=== PATIENT | male | born 1945 | race Caucasian/White ===

== ENCOUNTER → 2025-10-14 10:30 | Outpatient (REF) | payer MEDICARE, BC, SELFPAY ==
[2025-10-14 10:48] LABS: Mucous, Urine 0 SEEN /hpf (<or=2+); Red Blood Cells-Urine 0 SEEN /hpf (0-5); Squamous Epithelial Cells - UA 0 SEEN /hpf (0-5)
[2025-10-14 10:50] LABS: Color, Urine Yellow (Yellow); Glucose, Dipstick Normal (Normal); Ketone-Dipstick Negative (Negative); Leukocyte Esterase-Dipstick Negative /ul (Negative); Nitrite-Dipstick Negative (Negative); Occult Blood-Urine Negative /ul (Negative); Protein-Dipstick 15 mg/dl (Negative); Specific Gravity, Urine 1.010 (1.002-1.030); Urine Bilirubin Dipstick Negative (Negative)
== END ==
DX: Z00.00 Encounter for general adult medical examination without abnormal findings (principal)
CPT/HCPCS: 81001

== ENCOUNTER 2025-10-15 10:41 | Emergency (ER) | payer MEDICARE, SELFPAY ==
[2025-10-15] VITALS (8 sets, daily range): BP systolic 143–193; BP diastolic 64–91; PULSE 52–71; RESP 11–16; TEMP 35.8–37.1; O2SAT 94–100; BMI 24.9
--- NOTE | 2025-10-15 10:53 | EKG12_ITS ---
Test Reason : Blood Pressure : */* mmHG Vent. Rate : 55 BPM Atrial Rate : 55 BPM P-R Int : 196 ms QRS Dur : 92 ms QT Int : 484 ms P-R-T Axes : 35 61 71 degrees QTcB Int : 463 ms Sinus bradycardia Otherwise normal ECG Reconfirmed by Francis Deluna ([id number]), assignment editor ISMAEL PIERRE ([id number]) on 10/17/2025 10:10:50 AM Also confirmed by Francis Deluna ([id number]), assignment editor ISMAEL PIERRE ([id number]) on 10/18/2025 8:10:29 AM Referred By: Confirmed By: Francis Deluna
--- NOTE | 2025-10-15 10:54 | EX.ED.DYSGE1 ---
HPI History of Present Illness Chief Complaint: Hypoglycemia Narrative Narrative: Patient is a 80-year-old male presenting to the emergency department for poorly controlled glucose at his facility, [facility]. Patient has a past medical history of diabetes on insulin, cognitive impairment. The facility reports that his glucose has been poorly controlled. Not stating if it has been high or low. He is unable to provide history about why he is here or what has been going on. EMS reports that there glucose on time of arrival was 32, received 100 ml of D10 and was 142 on their recheck. PFSH PFSH Allergy/AdvReac Type Severity Reaction Status Date / Time No Known Allergies Allergy Verified 10/15/25 10:52 Social History Smoking Status: Unknown if ever smoked ROS ROS ED Review of Systems ROS Unobtainable: due to mental status EXAM Physical Exam Narrative Exam Narrative: Vital signs: Reviewed General: Alert and orientedx3. Intermittently confused, asking odd questions. No acute distress. Chronically ill appearing, nontoxic. HEENT: Head is normocephalic and atraumatic, sinuses nontender, pupils equal round and reactive. Nares are patent. Oropharynx and throat exams normal. Dry mucous membranes. Neck: Supple without lymphadenopathy nontender Cardiovascular: Regular rate and rhythm, no murmurs. No rubs or gallops. Normal S1 and S2 Respiratory: Clear to auscultation bilaterally. No wheezes, rales, rhonchi Abdominal: Soft and nontender. Normal bowel sounds. No guarding or rebound. Nonsurgical abdomen Extremities: No tenderness. No bruising. Normal range of motion. Normal sensation. Skin: No rash or redness. Neurological: Follows commands intermittently. Cranial nerves II through XII are grossly intact. Normal strength and sensation. Normal cerebellar function The rest of the physical exam is unremarkable Const Vital Signs: 10/15/25 10:44 10/15/25 10:51 10/15/25 11:43 Temperature 96.4 F L 98.1 F Temperature Source Temporal Oral Pulse Rate 57 L 57 L Respiratory Rate 15 14 Respiratory Effort Normal Non-Labored Respiratory Pattern Normal Blood Pressure 146/64 H 163/71 H Blood Pressure Mean 91 101 Pulse Ox 100 100 Oxygen Delivery Method Room Air Room Air 10/15/25 11:47 10/15/25 12:00 10/15/25 13:00 Temperature 98.7 F 98 F 98.4 F Temperature Source Oral Oral Oral Pulse Rate 52 L 58 L 62 Respiratory Rate 12 16 14 Respiratory Effort Respiratory Pattern Blood Pressure 193/76 H 193/76 H 143/68 H Blood Pressure Mean 115 115 93 Pulse Ox 100 94 95 Oxygen Delivery Method Room Air Room Air 10/15/25 14:00 10/15/25 14:35 10/15/25 15:15 Temperature 98.7 F 98 F Temperature Source Oral Pulse Rate 59 L 57 L 71 Respiratory Rate 11 L 13 14 Respiratory Effort Respiratory Pattern Blood Pressure 176/88 H 176/88 H 163/91 H Blood Pressure Mean 117 117 115 Pulse Ox 100 100 96 Oxygen Delivery Method Room Air Room Air MDM MDM MDM Narrative Medical decision making narrative: Patient is an 80-year-old male presenting to the emergency department for hypoglycemia. Patient was seen and examined. Vitals are stable. BP of 146/64. Pulse of 57 with respirations of 15. Patient is afebrile saturating 100% on room air. [id number] glucose on arrival here is 58, D10 bolus started. EKG shows sinus bradycardia at a rate of 55 with no evidence of AV block. No ischemic changes or dysrhythmia. Unknown if this was missed dosing of insulin versus infectious process that is causing the hypoglycemia. CBC with no leukocytosis and anemia of 12.4, no baseline to compare to. BMP with mild DIONISIO, BUN of 24 and Cr of 1.29, again no baseline to compare to. Glucose of 27, however after discussion with nursing staff this was labs that EMS merrill prior to them even giving the d10 bolus in the squad. Alk phos of 168, no baseline, normal AST, ALT, total bili. Urinalysis is not consistent with urinary tract infection. Chest x-ray reviewed myself and shows no opacities, pneumothorax or wide mediastinum. Radiology read in agreement. After the D10 bolus given here patient was a a lot less confused per family at bedside. Patient was given a turkey sandwich which he ate. Glucose checked about an hour after this and is 119. Recheck another hour later is 135 and an additional hour at 151. Family states that he is back at his mental baseline. Nursing staff did contact the nursing facility and they state that he does not eat normal schedule meals and this significantly affects his blood sugars after receiving insulin. This is likely the cause of his episode of hypoglycemia. He has now been stable for multiple hours after finishing his D10 bolus and eating. No episodes of hypoglycemia since. I think he is stable for outpatient management. Family asking for a primary care referral which was given. Patient discharged from the Emergency Department. I do not feel that the patient's evaluation reveals any acute reason for admission at this time. I instructed them to either follow-up with their primary care physician or promptly return to the Emergency Department for reevaluation should symptoms worsen or new symptoms develop. I explained what symptoms would indicate the need to return to the emergency department. Shared decision making was used. The patient voiced understanding of the treatment plan and is agreeable with it. Clinical impression: Hypoglycemia History & Record Review Discussion w/independent historian: EMS personnel and Family Lab Data Attestation: I reviewed the patient's lab results. Labs: Laboratory Results - last 24 hr 10/15/25 10/15/25 10/15/25 10:52 11:05 11:59 WBC 5.6 RBC 3.97 L Hgb 12.4 L Hct 37.8 L MCV 95.2 H MCH 31.2 MCHC 32.8 RDW Std Deviation 44.9 H RDW Coeff of Remedios 12.9 Plt Count 207 MPV 10.6 Immature Gran % (Auto) 0.500 Neut % (Auto) 64.5 Lymph % (Auto) 23.4 Woodruff % (Auto) 9.9 Eos % (Auto) 1.3 Baso % (Auto) 0.4 Absolute Neuts (auto) 3.6 Absolute Lymphs (auto) 1.30 Nucleated RBC % 0 Sodium 145 Potassium 3.9 Chloride 109 H Carbon Dioxide 22.9 Anion Gap 13 BUN 24 H Creatinine 1.29 H Estim Creat Clear Calc 48.46 L Est GFR (MDRD) Non-Af 55 L BUN/Creatinine Ratio 18.8 Glucose 27 L* Calcium 9.0 Total Bilirubin 0.42 AST 18 ALT 11 Alkaline Phosphatase 168 H Troponin T High Sens 21 Total Protein 7.4 Albumin 3.9 Globulin 3.5 Albumin/Globulin Ratio 1.1 Urine Color Urine Clarity Urine pH Ur Specific Cliff Urine Protein Urine Glucose (UA) Urine Ketones Urine Occult Blood Urine Nitrite Urine Bilirubin Urine Urobilinogen Ur Leukocyte Esterase Urine RBC Urine WBC Ur Squamous Epith Cells Urine Bacteria Urine Mucus POC Glucose 58 L 119 H 12/10/15/25 10/15/25 13:23 14:19 14:30 WBC RBC Hgb Hct MCV MCH MCHC RDW Std Deviation RDW Coeff of Remedios Plt Count MPV Immature Gran % (Auto) Neut % (Auto) Lymph % (Auto) Woodruff % (Auto) Eos % (Auto) Baso % (Auto) Absolute Neuts (auto) Absolute Lymphs (auto) Nucleated RBC % Sodium Potassium Chloride Carbon Dioxide Anion Gap BUN Creatinine Estim Creat Clear Calc Est GFR (MDRD) Non-Af BUN/Creatinine Ratio Glucose Calcium Total Bilirubin AST ALT Alkaline Phosphatase Troponin T High Sens Total Protein Albumin Globulin Albumin/Globulin Ratio Urine Color Yellow Urine Clarity Clear Urine pH 6.0 Ur Specific Cliff 1.010 Urine Protein 30 H Urine Glucose (UA) Normal Urine Ketones Negative Urine Occult Blood 10 H Urine Nitrite Negative Urine Bilirubin Negative Urine Urobilinogen Normal Ur Leukocyte Esterase 25 H Urine RBC 0-5 SEEN Urine WBC 0-5 SEEN Ur Squamous Epith Cells 0-5 SEEN Urine Bacteria RARE Urine Mucus 0 SEEN POC Glucose 135 H 151 H Radiography Chest X-Ray - ED: 2 View, Read by ED Physician, No Acute Disease and No Infiltrates Diagnostic Testing: Clinical Impression(s) from Imaging Studies Chest X-Ray 10/15/25 12:25 IMPRESSION: COPD. NO ACUTE FINDINGS. Reading Location: [facility] Discharge Plan Triage Chief Complaint: Hypoglycemia ED Provider: Nayana Chang Dx/Rx/DC Orders Clinical Impression: Hypoglycemia Instructions: Hypoglycemia (Low Blood Sugar) Primary Care Provider: Care Physician,No Primary Referrals: Iza Reed MD [Med Staff - Delivery Driver/Supervisor, Internal Medicine] - As soon as possible Care Physician,No Primary [Primary Care Provider, Medical] Activity Restrictions/Additional Instructions: Make sure you are checking your blood sugar frequently today. Your evaluation in the Emergency Department did not reveal any acute reason for admission. However, I want to emphasize that you may be early in the course of a disease process or illness even if it is not present. For this reason you should follow-up within 24 hours for reevaluation with either your primary care physician or if necessary back here in the Emergency Department. You should return to the Emergency Department immediately if your symptoms worsen or new symptoms develop. Print Language: Kazakh Disposition Disposition: Assisted Living Discharge Location: [facility]
[2025-10-15 11:15] LABS: Hematocrit 37.8 % (40-54); Hemoglobin 12.4 g/dL (13.0-16.5); Immature Granulocytes Count 0.030 X10^3/uL (0.0-0.0); Mean Corp Hgb Conc 32.8 g/dL (32-36); Mean Corpuscular Volume 95.2 fL (80-94); Mean Platelet Vol. 10.6 fl (6.2-12.0); NRBC Flagged by Analyzer 0 % (0-5); Platelet Count 207 K/mm3 (150-450); RBC Distribution Width CV 12.9 % (11.6-14.6); RBC Distribution Width SD 44.9 fl (35.1-43.9); Red Blood Count 3.97 M/mm3 (4.6-6.2); White Blood Count 5.6 K/mm3 (4.4-11.0)
[2025-10-15 11:57] LABS: Troponin T High Sensitivity 21 ng/L (<=22)
[2025-10-15 12:09] LABS: AST(SGOT) 18 U/L (<=37); Alanine Aminotransfer ALT/SGPT 11 U/L (<=46); Albumin, Serum 3.9 g/dL (3.4-4.8); Alkaline Phosphatase 168 U/L (40-129); Anion Gap 13 (5-15); BUN 24 mg/dL (4-19); BUN/Creat Ratio 18.8 RATIO (10-20); Calcium,Total 9.0 mg/dL (7.6-11.0); Carbon Dioxide 22.9 mmol/L (21.0-32.0); Chloride 109 mmol/L (98-108); Estimated Creatinine Clearance 48.46 ml/min (50-250); Globulin 3.5 g/dL (2.2-4.2); Glucose 27 mg/dL (70-99); Potassium 3.9 mmol/L (3.3-5.1)
--- NOTE | 2025-10-15 12:17 | ED.RN ---
PER NURSING STAFF AT [facility], PT HAS HAD UNSTABLE BLOOD SUGARS SINCE HIS ARRIVAL ON 09/17. THEY HAVE KEPT HIS MEDICATIONS THE SAME AND HAVE BEEN TRYING TO ENCOURAGE REGULAR MEALS FOR PT WHO IS VERY IRREGULAR WITH THEM
--- NOTE | 2025-10-15 12:25 | RAD_ITS ---
PROCEDURE: CHEST PA AND LATERAL 10/15/2025 REASON FOR EXAM: HYPOGLYCEMIA, R/O PNA TECHNIQUE: Procedure Code: RADCXR Modality: DX Procedure: CHEST PA AND LATERAL COMPARISON: None FINDINGS: Hardware: None Heart: The heart size is normal. Mediastinum: The mediastinal contour is unremarkable. Lungs: There are chronic-appearing changes of both lungs. No large consolidation. Bones: Degenerative changes are identified within the thoracic spine. RAD/Chest PA and Lateral IMPRESSION: COPD. NO ACUTE FINDINGS. Reading Location: [facility]
[2025-10-15 14:23] LABS: Mucous, Urine 0 SEEN /hpf (<or=2+)
[2025-10-15 14:33] LABS: Color, Urine Yellow (Yellow); Glucose, Dipstick Normal (Normal); Ketone-Dipstick Negative (Negative); Leukocyte Esterase-Dipstick 25 /ul (Negative); Nitrite-Dipstick Negative (Negative); Occult Blood-Urine 10 /ul (Negative); Protein-Dipstick 30 mg/dl (Negative); Specific Gravity, Urine 1.010 (1.002-1.030); Urine Bilirubin Dipstick Negative (Negative)
[2025-10-15 14:39] LABS: Red Blood Cells-Urine 0-5 SEEN /hpf (0-5); Squamous Epithelial Cells - UA 0-5 SEEN /hpf (0-5)
--- NOTE | 2025-10-15 16:05 | ED.RN ---
This RN attempted to call report to Erin, waited several minutes on hold with no response. Unable to get through for nurse to nurse report.
== END 2025-10-15 15:50 | disposition home or self-care (01) ==
PROVIDERS: Emergency Provider Student in an Organized Health Care Education/Training Program; Visit Provider Student in an Organized Health Care Education/Training Program
DX: E16.2 Hypoglycemia, unspecified (principal); E11.9 Type 2 diabetes mellitus without complications; Z79.4 Long term (current) use of insulin
CPT/HCPCS: 71046; 80053; 81001; 82962; 84484; 85025; 87631; 93005; 99285; A4216

== ENCOUNTER → 2025-10-17 05:00 | Outpatient (REF) | payer MEDICARE, SELFPAY ==
[2025-10-17 08:09] LABS: Hematocrit 33.9 % (40-54); Hemoglobin 11.2 g/dL (13.0-16.5); Immature Granulocytes Count 0.010 X10^3/uL (0.0-0.0); Mean Corp Hgb Conc 33.0 g/dL (32-36); Mean Corpuscular Volume 96.6 fL (80-94); Mean Platelet Vol. 10.9 fl (6.2-12.0); NRBC Flagged by Analyzer 0 % (0-5); Platelet Count 192 K/mm3 (150-450); RBC Distribution Width CV 13.0 % (11.6-14.6); RBC Distribution Width SD 46.3 fl (35.1-43.9); Red Blood Count 3.51 M/mm3 (4.6-6.2); White Blood Count 5.8 K/mm3 (4.4-11.0)
[2025-10-17 08:26] LABS: AST(SGOT) 17 U/L (<=37); Alanine Aminotransfer ALT/SGPT 10 U/L (<=46); Albumin, Serum 3.5 g/dL (3.4-4.8); Alkaline Phosphatase 144 U/L (40-129); Anion Gap 8 (5-15); BUN 30 mg/dL (4-19); BUN/Creat Ratio 22.5 RATIO (10-20); Calcium,Total 8.5 mg/dL (7.6-11.0); Carbon Dioxide 25.2 mmol/L (21.0-32.0); Chloride 107 mmol/L (98-108); Globulin 3.3 g/dL (2.2-4.2); Glucose 196 mg/dL (70-99); Potassium 4.4 mmol/L (3.3-5.1)
== END ==
PROVIDERS: Visit Provider Nurse Practitioner Family
DX: E11.42 Type 2 diabetes mellitus with diabetic polyneuropathy (principal); I44.1 Atrioventricular block, second degree; N17.9 Acute kidney failure, unspecified; R63.4 Abnormal weight loss
CPT/HCPCS: 36415; 80053; 83036; 85025